=== PATIENT | female | born 1990 | race Caucasian/White ===

== ENCOUNTER 2017-10-22 16:28 | Emergency (ER) | payer BC ==
--- NOTE | 2017-10-22 18:21 | Emergency Department Record ---
History of Present Illness - General Chief Complaint: Wound, puncture Stated Complaint: RT FOOT PUNCTURE WOUND/SWELLING Time Seen by Provider: 10/22/17 18:16 Source: Patient Mode of Arrival: Ambulatory Limitations: No limitations - History of Present Illness Initial Commments: 27 yo female presents to ED for evaluation following a puncture/sting injury to the right forefoot while in a [place]. Patient reports that she stepped on something (or something stung the bottom of her foot), reports immediate pain and redness which has now greatly improved following her initial injury 3 hours ago. Patient denies fevers, chills, or recent illness, denies health problems at her baseline. Patient does report previous ORIF of the right great toe and bunionectomy previously. Patient reports that her tetanus is UTD as well. Onset/Timin -: Hour(s) Extremity Location: Right: Foot Place: Outdoors Context: Accidental Associated Symptoms: Pain - Gerardo Coma Scale Eye Response: (4) Open spontaneously Motor Response: (6) Obeys commands Verbal Response: (5) Oriented Gerardo Total: 15 - Related Data Hx Tetanus Toxoid Vaccination: Yes Home Medications Medication Instructions Recorded Confirmed Last Taken Bupropion HCl [Wellbutrin Xl] 150 mg PO DAILY 10/22/17 10/22/17 10/22/17 Escitalopram Oxalate [Lexapro] 10 mg PO DAILY 10/22/17 10/22/17 10/22/17 Levothyroxine Sodium 125 mcg PO DAILY 10/22/17 10/22/17 10/22/17 Ranitidine HCl [Zantac] 75 mg PO DAILY 10/22/17 10/22/17 10/22/17 Previous Rx's Medication Instructions Recorded Cephalexin [Keflex] 500 mg PO QID #39 cap 10/22/17 Ciprofloxacin HCl [Cipro] 1 tab PO BID #19 tab 10/22/17 Allergies Allergy/AdvReac Type Severity Reaction Status Date / Time No Known Drug Allergies Allergy Verified 10/22/17 18:18 Travel Screening - Travel/Exposure Within Last 30 Days Have you traveled within the last 30 days?: No - Travel/Exposure Within Last Year Have you traveled outside the [place] in the last year?: No - Additonal Travel Details Have you been exposed to anyone with a communicable illness?: No - Travel Symptoms Symptom Screening: None Review of Systems Constitutional: Denies: Chills, Fever, Malaise, Night sweats Eyes: Denies: Eye discharge, Eye pain ENT: Denies: Congestion, Ear pain, Epistaxis Respiratory: Denies: Cough, Dyspnea Cardiovascular: Denies: Chest pain, Dyspnea on exertion Endocrine: Denies: Fatigue, Heat or cold intolerance Gastrointestinal: Denies: Abdominal pain, Nausea, Vomiting Genitourinary: Denies: Incontinence, Retention Musculoskeletal: Reports: Myalgia. Denies: Back pain, Gout Skin: Reports: Change in color. Denies: Bruising, Change in hair/nails, Rash Neurological: Denies: Abnormal gait, Confusion, Headache Psychiatric: Denies: Anxiety Hematological/Lymphatic: Denies: Anemia, Blood Clots Physical Exam - General General Appearance: Alert, Oriented x3, Cooperative, No acute distress Limitations: No limitations - Head Head exam: Atraumatic, Normocephalic, Normal inspection Head exam detail: negative: Abrasion, Contusion, Dinh's sign, General tenderness, Hematoma, Laceration - Eye Eye exam: Normal appearance. negative: Conjunctival injection, Periorbital swelling, Periorbital tenderness, Scleral icterus - ENT Ear exam: negative: Auricular hematoma, Auricular trauma Nasal Exam: negative: Active bleeding, Discharge, Dried blood, Foreign body Mouth exam: negative: Drooling, Laceration, Muffled voice, Tongue elevation - Neck Neck exam: Normal inspection. negative: Meningismus, Tenderness - Respiratory Respiratory exam: Normal lung sounds bilaterally. negative: Respiratory distress, Rhonchi, Stridor, Wheezes - Cardiovascular Cardiovascular Exam: Regular rate, Normal rhythm, Normal heart sounds - GI/Abdominal GI/Abdominal exam: Soft. negative: Rebound, Rigid, Tenderness - Rectal Rectal exam: Deferred - exam: Deferred - Extremities Extremities exam: Tenderness, Other (Mild TTP at a site of injury (small puncture wound forefoot) without surrounding erythema on exmaination, no STS or evidence of infection on examination.). negative: Calf tenderness, Pedal edema - Back Back exam: Denies: CVA tenderness (R), CVA tenderness (L) - Neurological Neurological exam: Alert, Normal gait, Oriented X3 - Psychiatric Psychiatric exam: Normal affect, Normal mood - Skin Skin exam: Normal color. negative: Abrasion Type of lesion: negative: abrasion Course Vital Signs 10/22/17 18:11 Temperature 98.3 F Pulse Rate 76 Respiratory 17 Rate Blood Pressure 139/88 Pulse Ox 97 - Reevaluation(s) Reevaluation #1: 10/22/17 18:21 Patient was seen an examined, no STS or erythema are present on examination at this time. Will obtain radiographs to exclude retained radio-opaque FB and reassess. Reevaluation #2: 10/22/17 19:27 Right Foot: No radio-opaque FB present on x-ray Patient was updated on her radiograph result, offered to anesthetize the foot locally and incise the area to definitively exclude a small [id number] FB , patient declined at this time. Will initiate antibiotics with instructions to return to ED for an any worsening of her symptoms. Disposition Disposition: Discharge Clinical Impression: Puncture wound of foot Qualifiers: Encounter type: initial encounter Laterality: right Qualified Code(s): S91.331A - Puncture wound without foreign body, right foot, initial encounter Disposition: Home, Self-Care Condition: (2) Stable Instructions: Puncture Wound (ED) Additional Instructions: Return to ED if your symptoms worsen or if you have any concerns. Keflex and Cipro as directed. Follow-up with your family doctor in 1-3 days as directed. Prescriptions: Cephalexin [Keflex] 500 mg PO QID #39 cap Ciprofloxacin HCl [Cipro] 1 tab PO BID #19 tab Forms: Patient Portal Access Time of Disposition: 19:32 Quality - Quality Measures Quality Measures: N/A - Blood Pressure Screening Does Patient Have Any of the Following: No Blood Pressure Classification: Pre-Hypertensive BP Reading Systolic Measurement: 139 Diastolic Measurement: 88 Screening for High Blood Pressure: < Pre-Hypertensive BP, F/U Documented > [ [id number]] Pre-Hypertensive Follow-up Interventions: Referral to alternative/primary care provider.
[2017-10-22] MEDS ORDERED: CEPHALEXIN 500 MG CAPSULE PO STA (19:27)
[2017-10-22] MEDS ORDERED: CIPROFLOXACIN HCL 500 MG TABLET PO ONE (19:27)
[2017-10-22] MEDS ORDERED: IBUPROFEN 600 MG TABLET PO ONE (20:07)
--- NOTE | 2017-10-24 07:42 | RADIOLOGY REPORT ---
DATE: 10/22/2017. EXAM: THREE VIEWS OF THE RIGHT FOOT. HISTORY: The patient has a history of injury. TECHNIQUE: Three views of the right foot are provided. COMPARISON: No comparison examination. FINDINGS: Postoperative changes are identified within the distal first metatarsal head and lateral fifth metatarsal head. Postoperative changes of the fifth digit are noted. Plate and screw fixation of the proximal first metatarsal is noted. No hardware failure is noted. Soft tissue swelling is noted over the first metatarsophalangeal joint. No radiopaque foreign bodies are identified. IMPRESSION: POSTOPERATIVE CHANGES OF THE RIGHT FOOT ARE NOTED WITHOUT RADIOGRAPHIC EVIDENCE OF AN ACUTE FRACTURE OR DISLOCATION OF THE RIGHT FOOT. SOFT TISSUE SWELLING IS NOTED OVER THE FIRST METATARSOPHALANGEAL JOINT WITHOUT RADIOGRAPHIC EVIDENCE OF A RADIOPAQUE FOREIGN BODY. JOB NUMBER: [id number] [facility] [place]
== END 2017-10-22 20:33 | disposition home or self-care (01) ==
LOC: ER 16:28
DX: S91.331A Puncture wound without foreign body, right foot, initial encounter (principal); W26.9XXA Contact with unspecified sharp object(s), initial encounter; Y93.11 Activity, swimming; Y92.828 Other wilderness area as the place of occurrence of the external cause
CPT/HCPCS: 99283